=== PATIENT | female | born 1990 | race Caucasian/White ===

== ENCOUNTER 2017-09-02 13:00 | Inpatient (IN) | payer BC ==
[~2017-09-02] VITALS: Ht 149.9 cm; Wt 77.6 kg
[~2017-09-02 13:00] MED LIST: ACET-685 PO; CEFD300C2 PO; FERR325T15 PO; HYDR-926 PO; PHEN-566 PO; PREN1TAB59 PO; SERT50TA PO
[2017-09-02] MEDS ORDERED: LACT1CAP34 PO (13:32)
[2017-09-02 13:40] VITALS: BP 122/72
[2017-09-02 14:05] LABS: BASOPHIL % 0.2 % (0.0-0.2); EOSINOPHIL % 0.4 % (0.0-5.0); LYMPHOCYTES # 2.1 10^3/uL (1.0-4.8); MEAN CELL HGB 29.5 pg (26-34); MEAN CELL HGB CONCENTRATION 33.9 g/dL (33-37); MEAN PLATELET VOLUME 12.5 fL (7.8-11.0); MONOCYTES # 0.6 10^3/uL (0.3-0.8); MONOCYTES % 6.7 % (5.0-12.0); NEUTROPHIL # 5.7 10^3/uL (1.8-7.7); NEUTROPHILS % 67.5 % (41.0-85.0); WHITE BLOOD CELL 8.4 10^3/uL (4.5-11.0)
[2017-09-02 14:07] LABS: BILIRUBIN,URINE NEGATIVE (NEGATIVE); UROBILINOGEN,URINE NORMAL (NEGATIVE)
[2017-09-02 14:23] LABS: APPEARANCE,URINE HAZY (CLEAR); UA COLOR YELLOW (YELLOW)
[2017-09-02 14:24] LABS: YEAST,URINE FEW
[2017-09-05] VITALS (54 sets, daily range): BP systolic 42–157; BP diastolic 21–97
[2017-09-05] MEDS ORDERED: LACTATED RINGERS 1,000 ML ONE ×3 (04:58→15:13)
[2017-09-05] MEDS: LACTATED RINGERS 1,000 ML IV PRN ×2 (07:39→09:55)
[2017-09-05] MEDS ORDERED: SODIUM CHLORIDE IR ONE (07:42)
[2017-09-05] MEDS ORDERED: LEVAQUIN 100 ML IV ONE (08:00)
[2017-09-05] MEDS ORDERED: ROCEPHIN 1,000 MG in NS 100ML 100 ML IV SCH (08:00)
[2017-09-05] MEDS ORDERED: DURAMORPH ONE (10:12)
[2017-09-05] MEDS ORDERED: DECADRON ONE (10:12)
[2017-09-05] MEDS ORDERED: ZOFRAN ONE (10:12)
[2017-09-05] MEDS ORDERED: SUBLIMAZE ONE ×2 (10:12→14:25)
[2017-09-05] MEDS ORDERED: TORADOL ONE ×2 (10:13→17:16)
[2017-09-05] MEDS: LACTATED RINGERS IV SCH ×3 (12:26→20:28)
[2017-09-05] MEDS: PITOCIN IV SCH ×3 (12:26→20:28)
[2017-09-05] MEDS ORDERED: AMBIEN PO PRN (12:30)
[2017-09-05] MEDS ORDERED: DILAUDID IV PRN (12:30)
[2017-09-05] MEDS ORDERED: BENADRYL PO PRN (12:30)
[2017-09-05] MEDS ORDERED: ZOFRAN ODT SL PRN (12:30)
[2017-09-05] MEDS ORDERED: MILK OF MAGNESIA PO PRN (12:30)
[2017-09-05] MEDS ORDERED: GAVISCON ES TABLET CHEW PO PRN (12:30)
--- NOTE | 2017-09-05 12:41 | PRM.OPH ---
Immediate Post Op Note Summary of Operation Date: Sep 05, 2017 Time: 12:33 Pre-Operative DX: IUP @ 39 2/7 WEEKS; H/O C/S X 3; UNDESIRED FERTILITY/DESIRES PERMANENT STER Post-OP DX: SAME Anesth.Used: FAILED SPINAL; GETA; LOCAL INFILTRATED TO WOUND AT CONCLUSION OF CASE (PRIOR TO PLACEMENT OF PREVENA WOUND VAC) Indications: REPEAT LOW TRANSVERSE SECTION VIA PFANNENSTIEL; BILATERAL SALPINGECTOMY EMPLOYING LIGASURE DEVICE Physician's Summary: Healthy-appearing liveborn male infant, delivered in breech position after internal version ( head moved to maternal right, and baby became transverse back-up lie upon entry into uterus and rupture of membranes), nuchal cord X 1, clear-colored fluid/membranes throughout. Baby boy born at 11:26am, scores of 7 and 9, weight 3968g (8# 11oz). Normal-appearing placenta. Normal-appearing tubes bilaterally, ovaries bilaterally. Assistants: Listed Assisting Physicians FLEX CENTENO DO; DORINA ORTIZ CASE FINISHER; NESS SCALES CST Anesthesiologist/BEHAVIORAL HEALTH DIRECTOR FRANK MICHAEL CRNA Specimen(s) Removed: List Specimen: RIGHT AND LEFT FALLOPIAN TUBES Estimated Blood Loss: EBL/ESTIMATED BLOOD LOSS: (MIL: 500 Complications: Complications: NONE Assessment & Plan: Update Surgical HX/Problems: (1) Status post repeat low transverse section (2) Status post bilateral salpingectomy (3) 39 weeks gestation of (4) History of 3 sections Assessment & Plan: Routine postop care. BRI JAMES MD Sep 05, 2017 12:41
[2017-09-05] MEDS ORDERED: PHENERGAN ONE (13:17)
[2017-09-05] MEDS ORDERED: DEMEROL ONE (13:17)
[2017-09-05] MEDS: DEMEROL IV PRN ×2 (13:29→19:46)
[2017-09-05] MEDS: PHENERGAN IV PRN (13:30)
--- NOTE | 2017-09-05 13:40 | NUR ---
PAIN REASSESSMENT FROM DEMEROL 0/10
[2017-09-05] MEDS ORDERED: CYTOTEC ONE (14:12)
[2017-09-05] MEDS ORDERED: NARCAN ONE (14:14)
[2017-09-05] MEDS ORDERED: DIPRIVAN IV ONE (14:21)
[2017-09-05] MEDS ORDERED: VERSED ONE (14:25)
[2017-09-05] MEDS ORDERED: WATER ONE (14:29)
[2017-09-05] MEDS ORDERED: NS 1000ML 1,000 ML ONE ×2 (14:29→15:02)
[2017-09-05] MEDS ORDERED: PREMARIN VG ONE (14:32)
[2017-09-05] MEDS ORDERED: HEMABATE IM ONE (14:42)
[2017-09-05 15:08] LABS: BASOPHIL % 0.1 % (0.0-0.2); EOSINOPHIL % 0.1 % (0.0-5.0); HEMOGLOBIN 12.9 g/dL (12.0-15.0); LYMPHOCYTES # 1.3 10^3/uL (1.0-4.8); LYMPHOCYTES % 7.7 % (24.0-44.0); MEAN CELL HGB 29.7 pg (26-34); MEAN CELL HGB CONCENTRATION 33.6 g/dL (33-37); MEAN CORP VOLUME 88.5 fL (78-100); MEAN PLATELET VOLUME 12.6 fL (7.8-11.0); MONOCYTES # 0.5 10^3/uL (0.3-0.8); NEUTROPHILS % 88.9 % (41.0-85.0); RED CELL DISTRIBUTION WIDTH 15.3 % (11.5-14.5); WHITE BLOOD CELL 16.9 10^3/uL (4.5-11.0)
[2017-09-05] MEDS ORDERED: LANOLIN HYDROUS TP ONE (15:54)
[2017-09-05 16:14] LABS: BASOPHIL % 0.1 % (0.0-0.2); EOSINOPHIL % 0.1 % (0.0-5.0); HEMOGLOBIN 14.1 g/dL (12.0-15.0); LYMPHOCYTES # 0.8 10^3/uL (1.0-4.8); LYMPHOCYTES % 5.2 % (24.0-44.0); MEAN CORP VOLUME 87.9 fL (78-100); MEAN PLATELET VOLUME 13.2 fL (7.8-11.0); MONOCYTES # 0.6 10^3/uL (0.3-0.8); MONOCYTES % 3.9 % (5.0-12.0); NEUTROPHIL # 13.5 10^3/uL (1.8-7.7); NEUTROPHILS % 90.5 % (41.0-85.0); RED CELL DISTRIBUTION WIDTH 15.2 % (11.5-14.5); WHITE BLOOD CELL 14.9 10^3/uL (4.5-11.0)
--- NOTE | 2017-09-05 16:59 | PRM.PN ---
Progress Note Subjective Date: Sep 05, 2017 Time: 16:43 PRE-OP DX: (1) atony of uterus with hemorrhage Anesth. Used: IV SEDATION WITH VERSED Procedure Performed: EXAM UNDER ANESTHESIA, PLACEMENT OF VAGINAL PACKING/BAKRI BALLOON Indications Called by Lisa Stewart RN to come to hospital because Judi Guidry RN was checking Chyana in her LDR and a hemorrhage was encountered, with approx 1500cc's of blood produced in the bed. 800mcg's Cytotec FL given by Judi, and patient moved to C/S OR. I arrived around 1420 and Barbara Velasquez CRNA was in the OR by that time as well. Pt moved to OR table, and while she was being moved, another 1500cc's of blood poured out from uterus. Pt given IV Versed and oxygen administered via face mask. Two IV sites secured. I performed an aggressive bimanual exam. Cervix not dilated except for fingertip. Decision made to place Bakri Baloon in posterior fornix of vagina, and pack vagina with entire moistened Kerlex roll. Sand bag and 1L IVF bag placed on uterine fundus; abdominal binder (now bloody) had been secured after I placed the Bakri. Three units O NEG blood given in C/S OR. Pt given 400mcg's more of Cytotec, so total dose would be 1200mcg's of Cytotec. Pt also given two doses of Methergine 0.2mg's IM and one dose of Hemabate 250mcg's IM. Pt received two bags of IVFs with 30units of Pitocin each. Decision made to move to the ICU for better observation. Peripheral blood could not be obtained , even in the feet. Stat CBC not accurate. I will want this patient to receive a total of 6units PRBCs and 2units FFP, but will defer to Dr Gardiner in the ICU. Urine output excellent just prior to moving patient to ICU bed and transfer to ICU. Family told of what was happening and that most likely Tyshawn will return to L&D tomorrow morning. FINAL DIAGNOSIS: SEVERE UTERINE ATONY, LEADING TO HEMORRHAGE. Loss of polarity of uterus and malpresentation when baby was delivered, was clue to this subsequent complication. Appreciate Dr Daniels and Dr Gardiner in participating in the care of this patient. EBL/ESTIMATED BLOOD LOSS: (MIL: 3000 Objective Urine Output: Adequate VITALS Vital Signs 09/05/17 09/05/17 09/05/17 12:32 12:47 16:33 Temp 99.0 Pulse 61 Resp 22 B/P (MAP) 128/74 Pulse Ox 95 O2 Delivery Room Air Non-Rebreather O2 Flow Rate 5 Vital Signs 09/05/17 09/05/17 09/05/17 09/05/17 12:17 12:17 12:32 12:47 Temp 97.7 97.9 97.7 Pulse 75 68 Resp 20 18 18 B/P (MAP) 128/80 (96) 115/73 (87) 121/72 (88) Pulse Ox 99 97 95 O2 Delivery Non-Rebreather Non-Rebreather Room Air Non-Rebreather O2 Flow Rate 15 15 5 09/05/17 16:33 Temp 99.0 Pulse 61 Resp 22 B/P (MAP) 128/74 I & O 09/04/17 09/04/17 09/05/17 08:00 16:00 00:00 Intake Detail Assessment & Plan: POST-OP DX: (1) atony of uterus with hemorrhage ICD Code: O72.1 - Other immediate hemorrhage SNOMED: 8407254, [id number] Assessment/Plan Will continue with transfusion, so that patient gets a total of 6units of PRBCs and 2units of FFP. Likely transfer back to L&D tomorrow am. BRI JAMES MD Sep 05, 2017 16:59
--- NOTE | 2017-09-05 17:00 | NUR ---
Patient had 200 ml of clear yellow urine out, hourly urine output per Dr. Daniels's order.
--- NOTE | 2017-09-05 17:00 | NUR ---
Dr. Daniels at bedside. Assess the patient and discuss plan of care with patient and with the mother of the patient. Patient complain of back pain. Patient verbalized that the only surgical history she had was 3 previous C section and other than that she is pretty healthy. Reinforce the importance of using the incentive spirometer after surgery. Patient ask if she can sit up to help with the back pain, Dr. Daniels contacted Dr. Deal and with Dr. Deal approval allowed patient to sit up in bed and patient's head of the bed at 32 degrees. Patient can have Gatorade, Jello, popsicle, chicken broth (clear liquid).
[2017-09-05] MEDS: TORADOL IV SCH (17:19)
--- NOTE | 2017-09-05 17:32 | NUR ---
DELEE SUCTIONED 6CC BLODDY SECRETIONS, CONTINUED TO DRY AND STIMULATE, APGARS 7&9, PLACED IN WARM BLANKETS AND TAKEN TO NURSERY
[2017-09-05] MEDS: PROTONIX IV IV SCH (17:53)
--- NOTE | 2017-09-05 18:00 | NUR ---
Patient had 220 ml of clear yellow urine out, hourly urine output per Dr. Daniels's order.
--- NOTE | 2017-09-05 18:45 | NUR ---
REPORT RECEIVED FROM JONATHAN CAMPOVERDE RN. ASSUMED PT CARE.
[2017-09-05] MEDS ORDERED: NS 250ML 250 ML IV ONE (20:09)
--- NOTE | 2017-09-05 21:21 | CNH ---
DATE OF CONSULTATION: CHIEF COMPLAINT: Post bleeding. HISTORY OF PRESENT ILLNESS: This is a 26-year-old female who presented today for . She had an urgent performed because of general anesthesia being required for no spinal being obtained. She had an essentially routine that was uneventful; however, in the postoperative phase, she developed some significant bleeding. She was treated clinically by the OB service and transfused PRBCs and at this time fresh frozen plasma was ordered. The patient has been moved to the ICU for monitoring and surgical evaluation for acute blood loss is requested. At time of my assessment, the patient is alert and pleasant. She has been supine since surgery. At her request, she is allowed to raise the head of her bed and she is noted to have no acute change in her vital signs. Heart rate was not increased when rising from supine to the seated position and her blood pressure did not have significant change. She does report some lower abdominal pain. She denies any nausea. She tolerated some clears per the nursing service reports. She has got good urine output in the ICU. PAST MEDICAL HISTORY: She denies. PAST SURGICAL HISTORY: Positive for x 3 prior to today and the 4th today. ALLERGIES: INCLUDE SULFA, PENICILLIN, NITROFURANTOIN. OUTPATIENT MEDICATIONS: Essentially none although apparently she was on some vitamins. SOCIAL HISTORY: Negative for alcohol, tobacco per chart. FAMILY HISTORY: Noncontributory to this evaluation. REVIEW OF SYSTEMS: CONSTITUTIONAL: She does not have any fever or chills at this time. She did have apparently some weakness earlier that is improved now. ENDOCRINE: She has no known thyroid disease or diabetes. CARDIOVASCULAR: She denies chest pain or trouble breathing. PULMONARY: She denies dyspnea or cough. OBSTETRIC AND GYNECOLOGIC: As per the chart. PHYSICAL EXAMINATION: VITAL SIGNS: This is a currently afebrile female. Last temperature is 99.2. Most recent pulse is 62, respiratory rate is approximately 22. Most recently reported blood pressure is 122/73. She has had good urine output approximately 700 mL today at 4:30 and we are requesting hourly urine outputs at this time. LABORATORY STUDIES: Last hemoglobin is 14.1 with a platelet count of 91. White count is 14.9. SURGICAL ASSESSMENT: 1. Status post today. 2. Postoperative acute blood loss, likely secondary to uterine atony. 3. Thrombocytopenia. PLAN: 1. The patient is seen and examined. Chart is reviewed. It appears that the patient has been appropriately managed from a clinical standpoint at this point by the OB service as the patient is down in the ICU. I will follow closely. 2. I have requested evaluation and continued management by the hospitalist service and the case was discussed with Dr. Gardiner. He will likely see her today. 3. She currently has adequate peripheral access. However, if she develops any further problems, we will consider central venous catheter placement. 4. Agree with the plan to transfuse FFP after completion of PRBCs and she will require close monitoring, hence the ICU admission seems appropriate. She has a DVT prophylaxis in the form of sequential compression devices and I have ordered Protonix for GI prophylaxis due to low platelets. Constantin Daniels DO DR: MARYCRUZ/pamela JOB# [id number] CC: Prince Deal MD MTDD
--- NOTE | 2017-09-05 23:03 | NUR ---
DR CENTENO CALLED TO ADVISE ON PT STATUS. NEW ORDERS RECEIVED: 1 - CBC, PT, PTT TO BE CHECKED 2 HOURS AFTER LAST FFP IS TRANSFUSED. 2 - RUN LR AT 100ML/HR. ALL ORDERS RBAV.
[2017-09-05] MEDS ORDERED: LACTATED RINGERS 1,000 ML IV ONE (23:30)
[2017-09-06] VITALS (66 sets, daily range): BP systolic 101–141; BP diastolic 44–86
[2017-09-06] MEDS: TORADOL IV SCH ×2 (00:01→06:17)
--- NOTE | 2017-09-06 00:27 | NUR ---
PAIN: PT COMPLAINING OF BACK PAIN AND PAIN TO RIGHT CHEST AREA. DR CENTENO NOTIFIED. ORDER GIVEN FOR EKG. ORDER RBAV.
[2017-09-06] MEDS: LACTATED RINGERS IV SCH (00:29)
[2017-09-06] MEDS: PITOCIN IV SCH (00:29)
--- NOTE | 2017-09-06 00:36 | PCM.EKG ---
[facility] Test Date: 2017-09-06 Test Time: 00:39:46 Pat Name: CHELSEA PHILLIPS Department: Room: ICU4 A Gender: F Delivery And Mail Sorter: LATRICIA : 1990 Requested By: FLEX CENTENO Order Number: [id number] Reading MD: John Pena Measurements Intervals [place] Rate: 65 P: -1 SC: 144 QRS: 7 QRSD: 86 T: 23 QT: 408 QTc: 424 Interpretive Statements Normal sinus rhythm Normal ECG No previous ECG available for comparison Electronically Signed On 09-07-2017 15:15:41 CDT by John Pena Please click the below link to view image of tracing.
--- NOTE | 2017-09-06 00:38 | NUR ---
EKG: RT - DANNY AT BEDSIDE FOR EKG.
--- NOTE | 2017-09-06 00:40 | NUR ---
DR CENTENO ON UNIT TO ASSESS PT.
--- NOTE | 2017-09-06 00:45 | NUR ---
BIOMETRIC FINGERPRINTING TECHNICIAN AT BEDSIDE
[2017-09-06] MEDS: NORCO 7.5MG PO PRN ×4 (00:51→16:26)
[2017-09-06 01:10] LABS: BASOPHIL % 0.1 % (0.0-0.2); LYMPHOCYTES # 1.3 10^3/uL (1.0-4.8); LYMPHOCYTES % 10.8 % (24.0-44.0); MEAN CELL HGB 29.7 pg (26-34); MEAN CELL HGB CONCENTRATION 34.7 g/dL (33-37); MEAN CORP VOLUME 85.6 fL (78-100); MEAN PLATELET VOLUME 12.7 fL (7.8-11.0); MONOCYTES # 1.2 10^3/uL (0.3-0.8); MONOCYTES % 9.3 % (5.0-12.0); NEUTROPHIL # 9.8 10^3/uL (1.8-7.7); NEUTROPHILS % 79.8 % (41.0-85.0); PLATELET COUNT 88 10^3/uL (150-400); RED CELL DISTRIBUTION WIDTH 15.1 % (11.5-14.5); WHITE BLOOD CELL 12.3 10^3/uL (4.5-11.0)
--- NOTE | 2017-09-06 01:15 | NUR ---
DR CENTENO NOTIFIED OF PT CBC LAB RESULTS. TELEPHONE ORDER GIVEN: 1-HOLD OFF ON BLOOD 2-CALL MD FOR HEART RATE GREATER THAN 80 3-CALL MD FOR SYSTOLIC BP LESS THAN 110 4-CONTINUE RUNNING LR AT 100ML/HR ORDERS RBAV.
--- NOTE | 2017-09-06 05:21 | NUR ---
DR CENTENO NOTIFIED OF PT BP OF 104/70 AND LAST 3 HOURLY OUTPUT OF 30ML/HR. TELEPHONE ORDER TO BOLUS PT 500ML OF NS. ORDER RBAV.
[2017-09-06] MEDS ORDERED: NS 1000ML 1,000 ML ONE (05:22)
--- NOTE | 2017-09-06 05:24 | NUR ---
CREATIVE WRITING ENGLISH PROFESSOR AT BEDSIDE.
[2017-09-06] MEDS ORDERED: NS 500ML 500 ML IV ONE (05:30)
[2017-09-06 06:50] LABS: CALCIUM 8.3 mg/dL (8.4-10.5); CARBON DIOXIDE 26.1 mmol/L (20.0-32)
[2017-09-06 06:52] LABS: BASOPHIL % 0.1 % (0.0-0.2); HEMOGLOBIN 11.4 g/dL (12.0-15.0); LYMPHOCYTES # 1.6 10^3/uL (1.0-4.8); LYMPHOCYTES % 15.4 % (24.0-44.0); MEAN CELL HGB 29.4 pg (26-34); MEAN CELL HGB CONCENTRATION 33.4 g/dL (33-37); MEAN CORP VOLUME 87.9 fL (78-100); MEAN PLATELET VOLUME 12.8 fL (7.8-11.0); MONOCYTES # 1.1 10^3/uL (0.3-0.8); MONOCYTES % 11.1 % (5.0-12.0); NEUTROPHIL # 7.4 10^3/uL (1.8-7.7); NEUTROPHILS % 73.2 % (41.0-85.0); RED CELL DISTRIBUTION WIDTH 15.4 % (11.5-14.5); WHITE BLOOD CELL 10.1 10^3/uL (4.5-11.0)
--- NOTE | 2017-09-06 07:00 | NUR ---
REPORT TO AM SHIFT. PT CARE RELINQUISHED.
--- NOTE | 2017-09-06 07:00 | NUR ---
RECEIVED REPORT ASSUMED CARE, RESTING QUIETLY, 0 DISTRESS NOTED, CALL LIGHT IN REACH.
--- NOTE | 2017-09-06 07:15 | NUR ---
PT ON BEDREST POST WITH HEMORRHAGE.
--- NOTE | 2017-09-06 07:30 | NUR ---
ABDOMINAL ASSESSMENT ABDOMINAL BINDER IN PLACE PREVENA WOUND VAC, DRESSING INTACT, CLEAN AND DRY, FUNCTIONING. BAKRI INTRAUTERINE BALLOON DEVICE IN PLACE. SMALL AMOUNT OF BLOODY DRAINAGE NOTED IN CATHETER TUBING. Addendum: 09/06/17 at 1636 by Betty Yanes RN - LAST CLEANER BOWEL SOUNDS HYPOACTIVE X4
--- NOTE | 2017-09-06 07:35 | NUR ---
DR CENTENO CALLED UNIT FOR UPDATE ON PT STATES TO CONTINUE CLEAR LIQUIDS, HE WILL BE ON UNIT THIS AM TO SEE PT.
--- NOTE | 2017-09-06 07:45 | NUR ---
PT SITTING UP WITH BREAKFAST TRAY CLEAR LIQUIDS, TOLERATED WELL.
--- NOTE | 2017-09-06 08:00 | NUR ---
DR LEON AT BEDSIDE TO ASSESS PT AND DISCUSS TX PLAN, STATES SHE WILL BE TRANSFERRED TO OB UNIT LATER TODAY.
[2017-09-06] MEDS ORDERED: PRENATAL VITAMIN TABLET PO ONE (09:34)
--- NOTE | 2017-09-06 09:54 | NUR ---
DR CENTENO AT BEDSIDE TO ASSESS PT AND DISCUSS TREATMENT PLAN, NEW ORDERS, DECREASE AND CONTINUE LR TO 50 ML/HR, CONTINUE CLEAR LIQUIDS, WILL GO TO OB UNIT TODAY PENDING LAB RESULTS.
[2017-09-06] MEDS ORDERED: MAGNESIUM SULFATE 50 ML IV ONE ×2 (10:00→13:12)
[2017-09-06] MEDS ORDERED: KLOR-CON 10 PO SCH (10:00)
[2017-09-06] MEDS ORDERED: ROCEPHIN 1,000 MG in NS 100ML 100 ML IV SCH (10:00)
[2017-09-06] MEDS: PRENATAL VITAMIN TABLET PO SCH (10:23)
[2017-09-06] MEDS: PROTONIX IV IV SCH (10:23)
[2017-09-06 11:03] LABS: BASOPHIL % 0.2 % (0.0-0.2); EOSINOPHIL % 0.1 % (0.0-5.0); HEMOGLOBIN 11.2 g/dL (12.0-15.0); LYMPHOCYTES # 1.7 10^3/uL (1.0-4.8); LYMPHOCYTES % 19.8 % (24.0-44.0); MEAN CELL HGB 29.2 pg (26-34); MEAN CELL HGB CONCENTRATION 33.2 g/dL (33-37); MEAN CORP VOLUME 87.8 fL (78-100); MEAN PLATELET VOLUME 13.1 fL (7.8-11.0); MONOCYTES # 0.7 10^3/uL (0.3-0.8); MONOCYTES % 8.4 % (5.0-12.0); NEUTROPHIL # 6.1 10^3/uL (1.8-7.7); NEUTROPHILS % 71.4 % (41.0-85.0); RED CELL DISTRIBUTION WIDTH 15.4 % (11.5-14.5); WHITE BLOOD CELL 8.5 10^3/uL (4.5-11.0)
--- NOTE | 2017-09-06 11:08 | PNH ---
DATE: SUBJECTIVE: A 26-year-old female in no acute distress in the ICU this morning. She was tolerating clear liquid diet. Her pain is improved. OBJECTIVE: VITAL SIGNS: She has T-max during the night of 99.5. Most recent temperature today is 98.0, most recent pulse is 64, respiratory rate of 15, blood pressure 105/49. She has had good urine output. O2 sat is 98%. HEART: Has regular rate and rhythm. LUNGS: Clear anteriorly bilaterally. ABDOMEN: The bowel sounds are positive, soft. Her uterus is still palpable and binder was replaced as placed by OB. The incision was covered with a Prevena device. LABORATORY DATA: Today show white count 10.1, hemoglobin 11.4, platelet count 79. Chemistry today shows potassium 3.5, BUN is 6, creatinine 0.63, magnesium is low at 1.4 and albumin is 2.1. Labs during the night, PT was 9.5, PTT is 24.8. SURGICAL ASSESSMENT: 1. Postoperative day #1 from section. 2. Postoperative hemorrhage requiring transfusion. 3. Thrombocytopenia. 4. Hypomagnesemia. PLAN: 1. The patient is seen and examined in the ICU. The chart is reviewed. I have reviewed medications ordered. There is no further medication that should be dropping her platelet count. 2. Continue GI and DVT prophylaxis as ordered. 3. We will repeat a CBC and PT, PTT later today and if they are stabilized, we will plan for allowing the patient to go back to the OB Department. 4. Obstetric management per the GEAR CODING MACHINE OPERATOR service. Constantin Daniels DO DR: MARYCRUZ/pamela JOB# [id number] CC: Prince ORTEZ
--- NOTE | 2017-09-06 11:10 | NUR ---
ABDOMINAL ASSESSMENT BOWEL SOUNDS X4, HYPOACTIVE. ABDOMINAL BINDER IN PLACE PREVENA WOUND VAC, DRESSING INTACT, CLEAN AND DRY, FUNCTIONING. BAKRI INTRAUTERINE BALLOON DEVICE IN PLACE. SMALL AMOUNT OF SEROSANGUINEOUS DRAINAGE NOTED IN CATHETER TUBING.
--- NOTE | 2017-09-06 11:31 | NUR ---
PT C/O PAIN IN BACK ADMINISTERED PO PRN MED FOR PAIN, SEE MAR.
--- NOTE | 2017-09-06 12:00 | NUR ---
PT ASSISTED WITH SPONGE BATH BY MOTHER, PER HER REQUEST.
--- NOTE | 2017-09-06 12:45 | NUR ---
DR JAMES AT BEDSIDE TO ASSESS PT. DISCUSSED AT LENGTH THE TREATMENT PLAN AND POSSIBLE COMPLICATIONS. STATED TO PT AND FAMILY THAT THE REDNESS ON R UPPER ARM WAS CAUSED BY PROSTAGLANDIN INJECTION GIVEN IN O.R. YESTERDAY WHEN PT HEMORRHAGED POST . STATES REDNESS PROBABLY CAUSED BY CHEMICALS OR PRESERVATIVES IN MEDICATION. REDNESS HAS NOT MOVED BEYOND BOUNDARY MARKINGS MADE WITH SKIN MARKER THIS AM. NEW ORDERS TRANSFER PT TO OB UNIT TODAY. DR JAMES STATES HE WILL SPEAK WITH DR CENTENO ABOUT LAB RESULTS AND TRANSFER.
--- NOTE | 2017-09-06 12:57 | PRM.PN ---
Subjective/Objective S/P: C/S (POD #1 s/p Repeat C/S with bilateral salpingectomy and Bakri Balloon placement, currently stable in the ICU--going to be transferred back to right now) General: Other (Pt is having some back pain ) Chest: Clear Heart: RRR Abdomen: Other (Abdominal binder is on, plus sandbag and 1000liter IVF bag) incision: Other (Prevena wound vac still in place) Urine Output: Adequate Extremities: Neg Edema/Neg Homans Vital Signs Vital Signs 09/05/17 09/05/17 09/05/17 12:32 12:47 16:33 Temp 99.0 Pulse 61 Resp 22 B/P (MAP) 128/74 Pulse Ox 95 O2 Delivery Room Air Non-Rebreather O2 Flow Rate 5 Vital Signs 09/05/17 09/05/17 09/05/17 09/05/17 12:17 12:17 12:32 12:47 Temp 97.7 97.9 97.7 Pulse 75 68 Resp 20 18 18 B/P (MAP) 128/80 (96) 115/73 (87) 121/72 (88) Pulse Ox 99 97 95 O2 Delivery Non-Rebreather Non-Rebreather Room Air Non-Rebreather O2 Flow Rate 15 15 5 09/05/17 16:33 Temp 99.0 Pulse 61 Resp 22 B/P (MAP) 128/74 I & O 09/04/17 09/04/17 09/05/17 08:00 16:00 00:00 Intake Detail Pulse is in the 60s Laboratory Tests Test 09/05/17 15:04 09/05/17 15:51 09/06/17 00:35 09/06/17 02:32 White Blood Count 16.9 10^3/uL 14.9 10^3/uL 12.3 10^3/uL Red Blood Count 4.34 10^6/uL 4.86 10^6/uL 4.04 10^6/uL Hemoglobin 12.9 g/dL 14.1 g/dL 12.0 g/dL Hematocrit 38.4 % 42.7 % 34.6 % Mean Corpuscular Volume 88.5 fL 87.9 fL 85.6 fL Mean Corpuscular Hemoglobin 29.7 pg 29.0 pg 29.7 pg Mean Corpuscular Hemoglobin Concent 33.6 g/dL 33.0 g/dL 34.7 g/dL Red Cell Distribution Width 15.3 % 15.2 % 15.1 % Platelet Count 110 10^3/uL 91 10^3/uL 88 10^3/uL Mean Platelet Volume 12.6 fL 13.2 fL 12.7 fL Neutrophils (%) (Auto) 88.9 % 90.5 % 79.8 % Lymphocytes (%) (Auto) 7.7 % 5.2 % 10.8 % Monocytes (%) (Auto) 3.0 % 3.9 % 9.3 % Neutrophils # (Auto) 15.0 10^3/uL 13.5 10^3/uL 9.8 10^3/uL Lymphocytes # (Auto) 1.3 10^3/uL 0.8 10^3/uL 1.3 10^3/uL Monocytes # (Auto) 0.5 10^3/uL 0.6 10^3/uL 1.2 10^3/uL Absolute Immature Granulocyte (auto 0.03 10^3 u/L 0.03 10^3 u/L Eosinophils % 0.1 % 0.1 % 0.0 % Basophils % 0.1 % 0.1 % 0.1 % Basophils # 0.0 10^3/uL 0.0 10^3/uL 0.0 10^3/uL Eosinophil Count 0.0 10^3/uL 0.0 10^3/uL 0.0 10^3/uL Percent Immature Gran (Cell Imm) 0.20 % 0.20 % Activated Partial Thromboplast Time 24.8 SEC Prothrombin Time 9.5 SEC Prothrombin Time INR (Non-Therap) 1.0 Test 09/06/17 05:21 09/06/17 08:04 09/06/17 10:45 09/06/17 11:00 White Blood Count 10.1 10^3/uL 8.5 10^3/uL Red Blood Count 3.88 10^6/uL 3.84 10^6/uL Hemoglobin 11.4 g/dL 11.2 g/dL Hematocrit 34.1 % 33.7 % Mean Corpuscular Volume 87.9 fL 87.8 fL Mean Corpuscular Hemoglobin 29.4 pg 29.2 pg Mean Corpuscular Hemoglobin Concent 33.4 g/dL 33.2 g/dL Red Cell Distribution Width 15.4 % 15.4 % Platelet Count 79 10^3/uL 81 10^3/uL Mean Platelet Volume 12.8 fL 13.1 fL Neutrophils (%) (Auto) 73.2 % 71.4 % Lymphocytes (%) (Auto) 15.4 % 19.8 % Monocytes (%) (Auto) 11.1 % 8.4 % Neutrophils # (Auto) 7.4 10^3/uL 6.1 10^3/uL Lymphocytes # (Auto) 1.6 10^3/uL 1.7 10^3/uL Monocytes # (Auto) 1.1 10^3/uL 0.7 10^3/uL Absolute Immature Granulocyte (auto 0.02 10^3 u/L 0.01 10^3 u/L Eosinophils % 0.0 % 0.1 % Basophils % 0.1 % 0.2 % Basophils # 0.0 10^3/uL 0.0 10^3/uL Eosinophil Count 0.0 10^3/uL 0.0 10^3/uL Sodium Level 141 mmol/L Potassium Level 3.5 mmol/L Chloride Level 106.0 mmol/L Carbon Dioxide Level 26.1 mmol/L Anion Gap 12.4 Blood Urea Nitrogen 6 mg/dL Creatinine 0.63 mg/dL Estimated GFR () 138.2 BUN/Creatinine Ratio 9.0 Glucose Level 95 mg/dL Calcium Level 8.3 mg/dL Total Bilirubin 0.9 mg/dL Aspartate Amino Transf (AST/SGOT) 17 U/L Alanine Aminotransferase (ALT/SGPT) 13 U/L Alkaline Phosphatase 92 U/L Total Protein 5.2 g/dL Albumin 2.1 g/dL Globulin 3.1 Percent Immature Gran (Cell Imm) 0.20 % 0.10 % Magnesium Level 1.4 mg/dL Prothrombin Time 9.5 SEC Prothrombin Time INR (Non-Therap) 1.0 Activated Partial Thromboplast Time 25.4 SEC Assessment/Plan Assessment/Plan S/P Hemorrhage requiring aggressive prostaglandin administration plus Bakri Balloon placement and vaginal packing--currently clinically stable. Will transfer back to unit now. Will not pull Bakri/vaginal packing till this evening. Pt has now received 4units PRBCs and 2units FFP; will hold off on any more transfusion products for now. Platelets are stable at 89. Urine output excellent. Will pull Carlton when Bakri is pulled tonite. Will want patient to get up to chair and even ambulate today. Advance diet. Will draw labs tomorrow am. IV Toradol held. APPRECIATE DR CENTENO'S ASSISTANCE IN THE MANAGEMENT OF THIS PATIENT. I have spoken with the family (pt's mother, pt' s ) here in the ICU (Room #4) and all of their questions were answered. They appreciate the nursing staff and team mobilizing quickly yesterday in the early afternoon to get Chyana's bleeding under control. Anticipate discharge home Thursday or even Thursday. Problems: (1) atony of uterus with hemorrhage ICD Code: O72.1 - Other immediate hemorrhage SNOMED: 7018728, 25730723 (2) Status post repeat low transverse section ICD Code: Z98.891 - History of uterine scar from previous surgery SNOMED: 81031890, 406734529, 065696853, 212845117 (3) Status post bilateral salpingectomy ICD Code: Z90.79 - Acquired absence of other genital organ(s) SNOMED: 89663040, 060784409 (4) History of 3 sections Status: Acute ICD Code: Z87.59 - Personal history of other complications of , childbirth and the puerperium SNOMED: 957641585 (5) 39 weeks gestation of ICD Code: Z3A.39 - 39 weeks gestation of SNOMED: 87730670 BRI JAMES MD Sep 06, 2017 12:57
[2017-09-06] MEDS ORDERED: MAGNESIUM-D5W 1 GM/100 ML SOLN 100 ML IV ONE (12:59)
[2017-09-06] MEDS ORDERED: LACTATED RINGERS 1,000 ML ONE (12:59)
--- NOTE | 2017-09-06 13:00 | NUR ---
TELEPHONE ORDER DR CENTENO CONTINUE LR AT 50 ML/HR. VBAV.
[2017-09-06] MEDS ORDERED: HETASTARCH 6% IV PRN (14:30)
[2017-09-06] MEDS ORDERED: CYTOTEC PV PRN (14:30)
[2017-09-06] MEDS ORDERED: METHERGINE IM PRN (14:30)
[2017-09-06] MEDS ORDERED: SODIUM CHLORIDE IV PRN (14:30)
[2017-09-06] MEDS: MOTRIN PO PRN (14:34)
--- NOTE | 2017-09-06 14:34 | NUR ---
PT C/O HEADACHE P9/10, ADMINISTERED PRN PO MED FOR PAIN, SEE MAR.
[2017-09-06] MEDS ORDERED: LR/PITOCIN 500 ML IV PRN (15:00)
--- NOTE | 2017-09-06 16:27 | NUR ---
PT STATES HEADACHE PAIN IS NOT RELIEVED, RATES 8/, ADMINISTERED PO PRN MEDICATION FOR PAIN, SEE MAR.
--- NOTE | 2017-09-06 17:30 | NUR ---
PT TRANSFERRED TO L&D1 VIA ICU BED, ON ROOM AIR, VSS, 0 DIFFICULTIES, 0 DISTRESS. REPORTED TO [facility] L&[facility].
[2017-09-06] MEDS: TYLENOL PO PRN (20:05)
--- NOTE | 2017-09-06 20:28 | CNH ---
DATE OF CONSULTATION: 09/05/2017 CONSULT/HISTORY AND PHYSICAL REFERRING PHYSICIAN: Constantin Daniels DO and Pancho Deal MD with General Surgery and OB respectively. REASON FOR CONSULTATION: Medical management of multiple medical problems. HISTORY OF PRESENT ILLNESS: The patient is a 26-year-old woman who is status post with a significant amount of blood loss. She also has some thrombocytopenia. She did not have any routine past medical history. Denies any tobacco use, has no chest pain, has a good functional status. There was reported significant amount of blood loss in the operating room with a . She was written for 2 units of FFP and 7 units of blood were ordered, although initially just 2 were transfused. Initial hemoglobin was 12.0. She is doing well clinically. Pain well controlled. PAST MEDICAL HISTORY: Essentially none. PAST SURGICAL HISTORY: She is status post , had prior C-sections x 3. ALLERGIES: ALLERGIC TO SULFA, PENICILLIN, AND MACROBID. HOME MEDICATIONS: Only includes vitamins. SOCIAL HISTORY: Lives at home. No alcohol, tobacco or illicit drug use history. FAMILY HISTORY: Negative for early coronary artery disease or diabetes. REVIEW OF SYSTEMS: CARDIAC: Denies chest pain, shortness of breath or dyspnea on exertion. PULMONARY: No cough, sputum production or pleuritic chest pain. GASTROINTESTINAL: No nausea, vomiting, diarrhea, constipation at time of exam. All else negative in 10 point review of system except as in HPI. PHYSICAL EXAMINATION: VITAL SIGNS: After surgery, height 149.8 cm, weight 77.6 kilograms, temperature 99.0, pulse 72, respiratory rate 24, blood pressure 138/65 and O2 saturation 98% on 2 liters nasal cannula. GENERAL: She is alert, in no acute distress at time of exam. HEENT: Pupils equal, round, reactive to light. Sclerae are anicteric. Oropharynx is clear. Mucous membranes are moist. NECK: Supple, no lymphadenopathy. CARDIOVASCULAR: At time of exam is regular rate and rhythm. LUNGS: Clear bilaterally. No wheezing. ABDOMEN: Soft. Bowel sounds are present. EXTREMITIES: Shows no cyanosis, clubbing or significant edema. NEUROLOGIC: Grossly nonfocal. LABORATORY DATA: CBC drawn, WBC 16.9, hemoglobin 12.9 and platelets 110. Differential: 89% neutrophils, 7% lymphocytes, 3% monocytes. ASSESSMENT AND PLAN: This patient is a 26-year-old woman status post with reported high blood loss, although she is not anemic with no significant past medical history with some thrombocytopenia. 1. We will follow clinically. Monitor for blood loss, although she is not anemic at this time. We will transfuse as indicated. 2. She has thrombocytopenia with no obvious medications indicating the cause. She was thrombocytopenic upon presentation with a history of thrombocytopenia dating back to May. We will follow clinically. 3. Appropriate p.r.n. pain and nausea medication. Thank you very much for this consult. We will follow with you. Time spent on 09/05/2017 is 45 minutes. Prince Gardiner MD DR: LUBNA/pamela JOB# [id number]
[2017-09-06] MEDS ORDERED: PHENERGAN ONE (21:43)
[2017-09-06] MEDS ORDERED: ESGIC PO PRN (22:00)
[2017-09-06] MEDS ORDERED: VALIUM PO PRN (22:00)
[2017-09-06] MEDS ORDERED: AMBIEN PO PRN (22:00)
[2017-09-06] MEDS: ESGIC PO PRN (22:13)
[2017-09-06] MEDS: PHENERGAN IV PRN (23:00)
[2017-09-07] MEDS ORDERED: LACTATED RINGERS 1,000 ML ONE (02:23)
[2017-09-07] MEDS: TYLENOL PO PRN ×2 (03:57→04:02)
[2017-09-07] MEDS: ESGIC PO PRN (03:57)
[2017-09-07 06:13] LABS: BASOPHIL % 0.4 % (0.0-0.2); EOSINOPHIL % 0.5 % (0.0-5.0); LYMPHOCYTES # 1.8 10^3/uL (1.0-4.8); LYMPHOCYTES % 23.1 % (24.0-44.0); MEAN CELL HGB 29.6 pg (26-34); MEAN CELL HGB CONCENTRATION 32.9 g/dL (33-37); MEAN CORP VOLUME 89.8 fL (78-100); MEAN PLATELET VOLUME 12.7 fL (7.8-11.0); MONOCYTES # 0.6 10^3/uL (0.3-0.8); MONOCYTES % 7.2 % (5.0-12.0); NEUTROPHIL # 5.4 10^3/uL (1.8-7.7); NEUTROPHILS % 68.4 % (41.0-85.0); RED CELL DISTRIBUTION WIDTH 15.6 % (11.5-14.5); WHITE BLOOD CELL 7.9 10^3/uL (4.5-11.0)
[2017-09-07 06:55] LABS: CALCIUM 8.4 mg/dL (8.4-10.5); CARBON DIOXIDE 26.3 mmol/L (20.0-32)
[2017-09-07] MEDS ORDERED: MOTRIN ONE ×3 (07:12→23:54)
[2017-09-07] MEDS ORDERED: NORCO 7.5MG PO ONE ×4 (07:13→20:37)
[2017-09-07] MEDS: MOTRIN PO PRN ×2 (07:22→15:14)
[2017-09-07] MEDS: NORCO 7.5MG PO PRN ×4 (07:22→20:45)
[2017-09-07] MEDS: PHENERGAN IV PRN (08:48)
[2017-09-07] MEDS ORDERED: PROTONIX IV IV ONE (08:58)
[2017-09-07] MEDS ORDERED: PRENATAL VITAMIN TABLET PO ONE (08:58)
[2017-09-07] MEDS: PROTONIX IV IV SCH (09:04)
[2017-09-07] MEDS: PRENATAL VITAMIN TABLET PO SCH (09:04)
--- NOTE | 2017-09-07 09:36 | NUR ---
Blood Patch Pt assessed and determined to have a spinal headache. Consent Obtained and blood patch performed with pt in sitting position. Time out performed with RN and procedure started. LADAN at 7cm. Blood obtained sterile from new IV start by RN. Placed 13cc of blood in epidural space. Pt headache relieved immediately. Arrived in pt room @ 0550 to discuss procedure and procedure was started at Addendum: 09/07/17 at 1037 by Barbara Velasquez CRNA [employer] procedure started at 0615. completed at 0705. Rechecked patient at 1030. pt sitting up hungry and headache diminished to -05/16 Barbara Velasquez
[2017-09-07] MEDS ORDERED: NS 1000ML 1,000 ML ONE (20:40)
[2017-09-07] MEDS: NS 1000ML 1,000 ML IV PRN (20:45)
--- NOTE | 2017-09-07 20:48 | PRM.PN ---
Subjective/Objective S/P: C/S (POD #2 s/p Repeat C/S with bilateral salpingectomy and subsequent hemorrhage with placement of Bakri Balloon. Pt is now s/p placement of blood patch for spinal LUX) General: Other (Pt continues to have a severe LUX despite the placement of a blood patch this morning. Bri Rico CRNA is going to evaluate this patient tomorrow morning, to see if she needs a second blood patch. As long as the patient is laying on her sides she is OK and the LUX pain is not so bad.) Chest: Clear Heart: RRR Abdomen: Uterus Firm/Non-Tender incision: Other (Prevena wound vac still in place) Urine Output: Adequate Extremities: Neg Edema/Neg Homans Vital Signs Vital Signs 09/05/17 09/05/17 09/05/17 12:32 12:47 16:33 Temp 99.0 Pulse 61 Resp 22 B/P (MAP) 128/74 Pulse Ox 95 O2 Delivery Room Air Non-Rebreather O2 Flow Rate 5 Vital Signs 09/05/17 09/05/17 09/05/17 09/05/17 12:17 12:17 12:32 12:47 Temp 97.7 97.9 97.7 Pulse 75 68 Resp 20 18 18 B/P (MAP) 128/80 (96) 115/73 (87) 121/72 (88) Pulse Ox 99 97 95 O2 Delivery Non-Rebreather Non-Rebreather Room Air Non-Rebreather O2 Flow Rate 15 15 5 09/05/17 16:33 Temp 99.0 Pulse 61 Resp 22 B/P (MAP) 128/74 I & O 09/04/17 09/04/17 09/05/17 08:00 16:00 00:00 Intake Detail Pulse is in the 60s Laboratory Tests Test 09/05/17 15:04 09/05/17 15:51 09/06/17 00:35 09/06/17 02:32 White Blood Count 16.9 10^3/uL 14.9 10^3/uL 12.3 10^3/uL Red Blood Count 4.34 10^6/uL 4.86 10^6/uL 4.04 10^6/uL Hemoglobin 12.9 g/dL 14.1 g/dL 12.0 g/dL Hematocrit 38.4 % 42.7 % 34.6 % Mean Corpuscular Volume 88.5 fL 87.9 fL 85.6 fL Mean Corpuscular Hemoglobin 29.7 pg 29.0 pg 29.7 pg Mean Corpuscular Hemoglobin Concent 33.6 g/dL 33.0 g/dL 34.7 g/dL Red Cell Distribution Width 15.3 % 15.2 % 15.1 % Platelet Count 110 10^3/uL 91 10^3/uL 88 10^3/uL Mean Platelet Volume 12.6 fL 13.2 fL 12.7 fL Neutrophils (%) (Auto) 88.9 % 90.5 % 79.8 % Lymphocytes (%) (Auto) 7.7 % 5.2 % 10.8 % Monocytes (%) (Auto) 3.0 % 3.9 % 9.3 % Neutrophils # (Auto) 15.0 10^3/uL 13.5 10^3/uL 9.8 10^3/uL Lymphocytes # (Auto) 1.3 10^3/uL 0.8 10^3/uL 1.3 10^3/uL Monocytes # (Auto) 0.5 10^3/uL 0.6 10^3/uL 1.2 10^3/uL Absolute Immature Granulocyte (auto 0.03 10^3 u/L 0.03 10^3 u/L Eosinophils % 0.1 % 0.1 % 0.0 % Basophils % 0.1 % 0.1 % 0.1 % Basophils # 0.0 10^3/uL 0.0 10^3/uL 0.0 10^3/uL Eosinophil Count 0.0 10^3/uL 0.0 10^3/uL 0.0 10^3/uL Percent Immature Gran (Cell Imm) 0.20 % 0.20 % Activated Partial Thromboplast Time 24.8 SEC Prothrombin Time 9.5 SEC Prothrombin Time INR (Non-Therap) 1.0 Test 09/06/17 05:21 09/06/17 08:04 09/06/17 10:45 09/06/17 11:00 White Blood Count 10.1 10^3/uL 8.5 10^3/uL Red Blood Count 3.88 10^6/uL 3.84 10^6/uL Hemoglobin 11.4 g/dL 11.2 g/dL Hematocrit 34.1 % 33.7 % Mean Corpuscular Volume 87.9 fL 87.8 fL Mean Corpuscular Hemoglobin 29.4 pg 29.2 pg Mean Corpuscular Hemoglobin Concent 33.4 g/dL 33.2 g/dL Red Cell Distribution Width 15.4 % 15.4 % Platelet Count 79 10^3/uL 81 10^3/uL Mean Platelet Volume 12.8 fL 13.1 fL Neutrophils (%) (Auto) 73.2 % 71.4 % Lymphocytes (%) (Auto) 15.4 % 19.8 % Monocytes (%) (Auto) 11.1 % 8.4 % Neutrophils # (Auto) 7.4 10^3/uL 6.1 10^3/uL Lymphocytes # (Auto) 1.6 10^3/uL 1.7 10^3/uL Monocytes # (Auto) 1.1 10^3/uL 0.7 10^3/uL Absolute Immature Granulocyte (auto 0.02 10^3 u/L 0.01 10^3 u/L Eosinophils % 0.0 % 0.1 % Basophils % 0.1 % 0.2 % Basophils # 0.0 10^3/uL 0.0 10^3/uL Eosinophil Count 0.0 10^3/uL 0.0 10^3/uL Sodium Level 141 mmol/L Potassium Level 3.5 mmol/L Chloride Level 106.0 mmol/L Carbon Dioxide Level 26.1 mmol/L Anion Gap 12.4 Blood Urea Nitrogen 6 mg/dL Creatinine 0.63 mg/dL Estimated GFR () 138.2 BUN/Creatinine Ratio 9.0 Glucose Level 95 mg/dL Calcium Level 8.3 mg/dL Total Bilirubin 0.9 mg/dL Aspartate Amino Transf (AST/SGOT) 17 U/L Alanine Aminotransferase (ALT/SGPT) 13 U/L Alkaline Phosphatase 92 U/L Total Protein 5.2 g/dL Albumin 2.1 g/dL Globulin 3.1 Percent Immature Gran (Cell Imm) 0.20 % 0.10 % Magnesium Level 1.4 mg/dL Prothrombin Time 9.5 SEC Prothrombin Time INR (Non-Therap) 1.0 Activated Partial Thromboplast Time 25.4 SEC Assessment/Plan Assessment/Plan Possible second blood patch in am. Routine postop/ care otherwise. H /H stable, no need for more transfusions. Anticipate discharge home on Thu. Problems: (1) Spinal headache complicating labor and delivery, delivered, ICD Code: O74.5 - Spinal and epidural anesthesia-induced headache during labor and delivery SNOMED: 960411422 (2) atony of uterus with hemorrhage ICD Code: O72.1 - Other immediate hemorrhage SNOMED: 3152193, 42760156 (3) Status post repeat low transverse section ICD Code: Z98.891 - History of uterine scar from previous surgery SNOMED: 20673502, 275106691, 204657491, 291370601 (4) 39 weeks gestation of ICD Code: Z3A.39 - 39 weeks gestation of SNOMED: 36880306 (5) History of 3 sections Status: Acute ICD Code: Z87.59 - Personal history of other complications of , childbirth and the puerperium SNOMED: 946269807 BRI JAMES MD Sep 07, 2017 20:48
[2017-09-08] MEDS: MOTRIN PO PRN ×4 (00:03→20:32)
[2017-09-08] MEDS ORDERED: NORCO 7.5MG PO ONE ×2 (01:09→07:05)
[2017-09-08] MEDS: NORCO 7.5MG PO PRN ×2 (01:22→07:14)
[2017-09-08] MEDS ORDERED: NS 1000ML 1,000 ML ONE (04:35)
[2017-09-08] MEDS: NS 1000ML 1,000 ML IV PRN (04:41)
[2017-09-08 05:05] LABS: BASOPHIL % 0.5 % (0.0-0.2); EOSINOPHIL # 0.1 10^3/uL (0.0-0.2); EOSINOPHIL % 1.4 % (0.0-5.0); HEMOGLOBIN 11.1 g/dL (12.0-15.0); LYMPHOCYTES # 2.6 10^3/uL (1.0-4.8); LYMPHOCYTES % 35.4 % (24.0-44.0); MEAN CELL HGB 29.5 pg (26-34); MEAN CELL HGB CONCENTRATION 32.8 g/dL (33-37); MEAN CORP VOLUME 89.9 fL (78-100); MEAN PLATELET VOLUME 12.3 fL (7.8-11.0); MONOCYTES # 0.5 10^3/uL (0.3-0.8); MONOCYTES % 6.4 % (5.0-12.0); NEUTROPHIL # 4.2 10^3/uL (1.8-7.7); RED CELL DISTRIBUTION WIDTH 15.4 % (11.5-14.5); WHITE BLOOD CELL 7.4 10^3/uL (4.5-11.0)
[2017-09-08 05:28] LABS: CALCIUM 7.5 mg/dL (8.4-10.5); CARBON DIOXIDE 24.8 mmol/L (20.0-32)
[2017-09-08] MEDS ORDERED: ZOFRAN ONE (07:54)
[2017-09-08] MEDS: ZOFRAN IV PRN (07:56)
[2017-09-08] MEDS ORDERED: PROTONIX IV IV ONE (10:15)
[2017-09-08] MEDS ORDERED: PRENATAL VITAMIN TABLET PO ONE (10:15)
[2017-09-08] MEDS: PROTONIX IV IV SCH (10:18)
[2017-09-08] MEDS: PRENATAL VITAMIN TABLET PO SCH (10:18)
--- NOTE | 2017-09-08 10:32 | NUR ---
Consulted for spinal headache. Pt had an epidural blood patch yesterday without relief. Risk and benefits discussed with pt and chooses to proceed with epidural blood patch. Pt sitting position. site cleaned with chloroprep, local injection via lidocaine 1%, Epidural space at 7 cm via 17 g touhy x 1. Blood received from Rn via sterile method. 16 ml of Blood injected into epidural space slowly. Sterile procedure maintained at all times. Pt tolerated procedure well. Immediately headache relief according to pt. Pt positioned flat. Post op instructions verbalized. No complications noted. Will continue to monitor.
[2017-09-08] MEDS ORDERED: MOTRIN ONE ×3 (12:20→20:29)
[2017-09-08] MEDS ORDERED: ZOFRAN ODT ONE (12:40)
[2017-09-08] MEDS ORDERED: TYLENOL PO ONE (17:06)
[2017-09-08] MEDS: TYLENOL PO PRN (17:08)
[2017-09-08] MEDS ORDERED: HYDR-925 PO (18:37)
--- NOTE | 2017-09-08 18:51 | PRM.DC ---
OB Discharge Summary Discharge Summary Discharge Diagnosis: S/P (S/P Repeat C/S with bilateral salpingectomy ; S/P placement of Bakri Balloon and transfusion of PRBCs/FFP) Complications: Transfusion (Pt endured a PPH at 2pm on ThuSeptember 05, and I placed a Bakri Balloon in the posterior fornix of the vagina with a vaginal packing. She was given Methergine X 2, Hemabate X 1, and Cytotec 1200mcg's [place]. She was moved to the ICU overnight but did not require pressors and was hemodynamically stable even upon entry to the ICU.) Abnormal Lab Results Laboratory Tests Test 09/07/17 05:05 09/08/17 04:43 White Blood Count 7.9 10^3/uL 7.4 10^3/uL Red Blood Count 3.72 10^6/uL 3.76 10^6/uL Hemoglobin 11.0 g/dL 11.1 g/dL Hematocrit 33.4 % 33.8 % Mean Corpuscular Volume 89.8 fL 89.9 fL Mean Corpuscular Hemoglobin 29.6 pg 29.5 pg Mean Corpuscular Hemoglobin Concent 32.9 g/dL 32.8 g/dL Red Cell Distribution Width 15.6 % 15.4 % Platelet Count 97 10^3/uL 88 10^3/uL Mean Platelet Volume 12.7 fL 12.3 fL Neutrophils (%) (Auto) 68.4 % 56.0 % Lymphocytes (%) (Auto) 23.1 % 35.4 % Monocytes (%) (Auto) 7.2 % 6.4 % Neutrophils # (Auto) 5.4 10^3/uL 4.2 10^3/uL Lymphocytes # (Auto) 1.8 10^3/uL 2.6 10^3/uL Monocytes # (Auto) 0.6 10^3/uL 0.5 10^3/uL Absolute Immature Granulocyte (auto 0.03 10^3 u/L 0.02 10^3 u/L Eosinophils % 0.5 % 1.4 % Basophils % 0.4 % 0.5 % Basophils # 0.0 10^3/uL 0.0 10^3/uL Eosinophil Count 0.0 10^3/uL 0.1 10^3/uL Prothrombin Time 9.3 SEC Prothrombin Time INR (Non-Therap) 0.9 Activated Partial Thromboplast Time 24.3 SEC Sodium Level 143 mmol/L 143 mmol/L Potassium Level 3.8 mmol/L 3.6 mmol/L Chloride Level 108.0 mmol/L 109.0 mmol/L Carbon Dioxide Level 26.3 mmol/L 24.8 mmol/L Anion Gap 12.5 12.8 Blood Urea Nitrogen 6 mg/dL 8 mg/dL Creatinine 0.52 mg/dL 0.65 mg/dL Estimated GFR () 172.5 133.3 BUN/Creatinine Ratio 11.0 12.0 Glucose Level 77 mg/dL 94 mg/dL Calcium Level 8.4 mg/dL 7.5 mg/dL Total Bilirubin 0.6 mg/dL 0.3 mg/dL Aspartate Amino Transf (AST/SGOT) 20 U/L 13 U/L Alanine Aminotransferase (ALT/SGPT) 13 U/L 13 U/L Alkaline Phosphatase 84 U/L 80 U/L Total Protein 5.3 g/dL 5.0 g/dL Albumin 2.0 g/dL 1.9 g/dL Globulin 3.3 3.1 Percent Immature Gran (Cell Imm) 0.40 % 0.30 % Medications: Other (Rx [place] 7.5/325 #30 no refills--written on triplicate prescription pad and given to patient during her preop appointment.) Discharge Disposition: Stable Discharge Instructions: Pelvic Rest x 6 Weeks, Clinic F/U 1-2 Weeks, Regular Diet, Regular Activity, Meds as Prescribed, Call MD for Problems Additional Comments Pt had failed attempts at spinal anesthesia on ThuSeptember 05, and so she had general anesthesia for her Repeat C/S with bilateral salpingectomy. She had a spinal headache. She had two blood patches placed, and she did get relief several hours after the second one was placed in the morning of September 08 2017. Moving air good on chest exam on September 08 2017. Pt ambulating well too by . BRI JAMES MD Sep 08, 2017 18:51
--- NOTE | 2017-09-08 20:28 | NUR ---
DROPPED MOTRIN ON FLOOR I WAS OPENING IT FOR PT IN THE ROOM. MOTRIN WASTED AND NEW MOTRIN ADMINISTERED @ 2031
[2017-09-09] MEDS ORDERED: MOTRIN ONE (05:45)
[2017-09-09] MEDS ORDERED: NORCO 7.5MG PO ONE (05:45)
[2017-09-09] MEDS: NORCO 7.5MG PO PRN (05:49)
[2017-09-09] MEDS: MOTRIN PO PRN (05:49)
[2017-09-09] MEDS ORDERED: ZOFRAN ONE (08:53)
[2017-09-09] MEDS ORDERED: PROTONIX IV IV ONE (08:53)
[2017-09-09] MEDS ORDERED: ESGIC PO ONE (08:54)
[2017-09-09] MEDS ORDERED: PRENATAL VITAMIN TABLET PO ONE (08:54)
[2017-09-09] MEDS: PROTONIX IV IV SCH (09:04)
[2017-09-09] MEDS: ESGIC PO PRN (09:08)
[2017-09-09] MEDS: PRENATAL VITAMIN TABLET PO SCH (09:08)
[2017-09-09] MEDS: ZOFRAN IV PRN (09:08)
[2017-09-09] MEDS ORDERED: PHENERGAN ONE (12:16)
[2017-09-09] MEDS ORDERED: DEMEROL ONE (12:17)
[2017-09-09] MEDS ORDERED: LIDOCAINE HCL MM ONE (12:21)
[2017-09-09] MEDS ORDERED: SUBLIMAZE ONE (12:46)
[2017-09-09] MEDS ORDERED: NS 1000ML 1,000 ML ONE (12:46)
[2017-09-09] MEDS ORDERED: SUBLIMAZE IV STA (12:52)
[2017-09-09] MEDS ORDERED: PHENERGAN IM STA (12:54)
[2017-09-09] MEDS ORDERED: DEMEROL IM STA (12:54)
[2017-09-09] MEDS ORDERED: NS 1000ML 1,000 ML IV SCH (13:00)
--- NOTE | 2017-09-09 13:45 | NUR ---
was called and asked to do sphenopalentine block prior to discharge for continued possible post dural headache. Upon arrival to the pt room she was crying out in pain, holding her head. she was able to tell me it just started when she rolled over. It was in the top of her head even when laying down but is now in the back and neck. I ordered Im pain medication and talked with the and Dr. Deal. Say arrived at the unit shortly and it was decided to transfer her to out for neuro consult. In the meantime an IV was started by me and IVfluids ordered as well as Fentanyl for pain. after a total of Fentanyl 100 mcg IV the patient was able to get some relief--see nurses notes. No block was performed at this time, will defer to [facility] for further treatment at this time.
[2017-09-09 19:29] VITALS: BP 150/70
--- NOTE | 2017-09-10 02:21 | PNH ---
DATE: 09/09/2017 I am going to be shipping the patient to [facility] in [place], [place], for further workup and management of a severe spinal headache, which has been recalcitrant to blood patch placement x 2 by MOTOR VEHICLE ESCORT DRIVER staff. Today, the patient is postoperative day #4, status post repeat section and bilateral salpingectomy under general anesthesia. The procedure was performed on Thursday09/05/2017 owing to pediatric coverage issues. The patient had been stuck multiple times by the MOTOR VEHICLE ESCORT DRIVER php consultant that day, hoping to successfully place a spinal. However, the spinal could not be placed, and so the procedure was performed under general anesthesia. The patient tolerated the procedure very well, however, approximately 3 hours after the procedure, the patient suffered a severe hemorrhage, where she likely lost approximately 2.5-3 liters of blood. The patient was transfused with 4 units of PRBCs, the first three being O negative blood, and the fourth one being typed and matched. She also received 2 units of FFP. The patient was transferred to the ICU on Thursday09/05/2017, however, her pulse was in the 60s-70s throughout, and pressors were not necessary. The patient had a Bakri balloon with vaginal packing placed in the posterior fornix of her vagina, by me during the day on Thursday09/05/2017, prior to the patient's transfer to the ICU. The patient's Bakri balloon and vaginal packing were removed by me on Thursday09/06/2017 hours after the patient was transferred back to her room. The patient had 2 blood patches placed, one on 09/07/2017, and another on Thursday09/08/2017. The 1 placed on Thursday09/07/2017, was by the originating MOTOR VEHICLE ESCORT DRIVER who had given her anesthesia on Thursday09/05/2017, Barbara Velasquez A second blood patch was placed on 09/08/2017 (yesterday), by Pancho Rico CRNA. There was not the usual 20 mL of blood that was administered into the epidural space during Pancho Rico's procedure. The patient did get some relief on Thursday09/08/2017 for a couple of hours; however, she had a return of her severe spinal headache. As the afternoon progressed on Thursday09/08/2017 slowly, the patient began to feel better, and by the evening of 09/08/2017, the patient was fully ambulatory on the hospital floor, where she was pushing her baby, and her headache had abated very much so. The patient slept well overnight, and there were plans to dismiss her home today, Thursday09/09/2017. The patient was doing very well headache jimenez this morning, however, when a third MOTOR VEHICLE ESCORT DRIVER, Ms. Barbara Bolden, came to visit the patient today in her room, the patient turned her head to the side quickly, and apparently this precipitated the onset of a very severe spinal headache. The patient was screaming in pain. At this point, I felt that the patient needs to go to a tertiary care facility for further workup and management. The patient's family was extremely understanding when myself and Barbara Bolden were explaining the need for transfer out of our facility. Barbara Bolden did give the patient IV Demerol and IV fentanyl today, while waiting for me to coordinate the transfer. Transferring the patient out of our facility was not straightforward. I initially made contact with the [facility] Transfer Center at 12:40 p.m. today. I spoke with Allison. He connected me with Dr. Garcia, who was an RADIOLOGY SERVICES MANAGER faculty at [facility] in [place]. I spoke with Dr. Garcia around 12:[address] Garcia felt that the two neurologists who performed consult at [facility] were not always readily available when a patient such as this would need a consultation emergently. One of the two neurologists that he and his fellow faculty have used in the past was Dr. Barros (I am unsure of the exact spelling). Dr. Garcia was afraid that Dr. Barros would come see the patient tomorrow and Dr. Garcia agreed that this patient should be evaluated by Neurology as soon as possible. Dr. Garcia suggested that I get a hold of [facility] to see if they had other options for Neurology care. Allison from the transfer center at [place] then transferred me to Lisa of the [facility] transfer center in [place]. After a few minutes on the phone with Lisa from the transfer center at [facility], it was obvious that I was going to have to transfer the patient to [facility]. Apparently, [facility] does not have neurologists for consultation. Lisa of the [facility] transfer center gave me the phone number for the transfer center at [facility] in [place], which was . I got a hold of Rica at 12:55 p.m. Rica called me back, and I spoke with Dr. Sow, who is an RADIOLOGY SERVICES MANAGER faculty at [facility] in [place], working out of [facility]. This phone call began at 1:[address] Sow accepted the patient at 1:20 p.m., and said that the patient could be transferred to Labor and Delivery at [facility]. Dr. Sow said that he conferred with the staff anesthesiologist on Labor and Delivery today at [facility], and both men agreed that this patient could be evaluated in [place] today. I thank Dr. Sow for his participation in the care of this patient. I began the paperwork for a transfer of the patient to [place] today. I spoke with the patient's family about the need for transfer to [place] and how [place] does not have the availability of a neurologist to evaluate the patient immediately. I sincerely apologized to the family that the patient was having such a difficult time with the spinal headaches. The patient's expressed gratitude to me for taking care of his . All of their questions were answered. I asked the patient's to keep us abreast of what is going on with the patient at [facility] in [place]. If the patient is dismissed from the hospital, she will follow up with me tentatively on Thursday09/14/2017 for removal of her Prevena wound VAC/dressing. Pancho Deal MD DR: LELA/pamela JOB# [id number] PÉREZ
== END 2017-09-09 14:30 | disposition short-term general hospital (02) | DRG 765 ==
LOC: EEVIPCON 13:00 → LND 09-05 00:02 → ICU 09-05 15:25 → LND 09-06 17:30 → EDPENDDISTM 09-09 14:30
PROVIDERS: ADMIT Hospitalist; ATTEND Hospitalist
PROC: 0UB70ZZ Excision of Bilateral Fallopian Tubes, Open Approach (ICD-10-PCS; 2017-09-05)
PROC: 0W3R7ZZ Control Bleeding in Genitourinary Tract, Via Natural or Artificial Opening (ICD-10-PCS; 2017-09-05)
PROC: 30233L1 Transfusion of Nonautologous Fresh Plasma into Peripheral Vein, Percutaneous Approach (ICD-10-PCS; 2017-09-05)
PROC: 30233N1 Transfusion of Nonautologous Red Blood Cells into Peripheral Vein, Percutaneous Approach (ICD-10-PCS; 2017-09-05)
PROC: 30233K1 Transfusion of Nonautologous Frozen Plasma into Peripheral Vein, Percutaneous Approach (ICD-10-PCS; 2017-09-05)
PROC: 10D00Z1 Extraction of Products of Conception, Low, Open Approach (ICD-10-PCS; principal; 2017-09-05 10:22)
DX: O34.211 Maternal care for low transverse scar from previous cesarean delivery (principal); O72.1 Other immediate postpartum hemorrhage; O99.12 Other diseases of the blood and blood-forming organs and certain disorders involving the immune mechanism complicating childbirth; O99.13 Other diseases of the blood and blood-forming organs and certain disorders involving the immune mechanism complicating the puerperium; D69.6 Thrombocytopenia, unspecified; O69.81X0 Labor and delivery complicated by cord around neck, without compression, not applicable or unspecified; O89.4 Spinal and epidural anesthesia-induced headache during the puerperium; E83.42 Hypomagnesemia; O32.1XX0 Maternal care for breech presentation, not applicable or unspecified; O99.62 Diseases of the digestive system complicating childbirth; K21.9 Gastro-esophageal reflux disease without esophagitis; Z30.2 Encounter for sterilization; Z88.0 Allergy status to penicillin; Z3A.39 39 weeks gestation of pregnancy; Z37.0 Single live birth; Z88.2 Allergy status to sulfonamides; Z88.8 Allergy status to other drugs, medicaments and biological substances
CPT/HCPCS: 36415; 36430; 80053; 81000; 83735; 85025; 85610; 85730; 86318; 86885; 86900; 86901; 86921; 87086; 88302; 93005; A4338; C9113; J0696; J1100; J1885; J2175; J2210; J2250; J2405; J2550; J2590; J3010; J3475; J3480; J3490; J7030; J7050; J7120; P9016; Q0162; J2274; J2310; P9017

== ENCOUNTER → 2018-07-19 | Outpatient (CLI) | payer BC ==
[~2018-07-19] MED LIST changes: +HYDR-3468 PO; +HYDR-3469 PO; -HYDR-926 PO; +LACT1CAP34 PO
[2018-07-19 10:48] LABS: BASOPHIL # 0.1 10^3/uL (0.0-0.1); BASOPHIL % 0.8 % (0.0-0.2); EOSINOPHIL # 0.1 10^3/uL (0.0-0.2); LYMPHOCYTES # 2.5 10^3/uL (1.0-4.8); MEAN CELL HGB 29.7 pg (26-34); MEAN CELL HGB CONCENTRATION 34.4 g/dL (33-37); MEAN CORP VOLUME 86.3 fL (78-100); MEAN PLATELET VOLUME 11.3 fL (7.8-11.0); MONOCYTES # 0.5 10^3/uL (0.3-0.8); MONOCYTES % 6.1 % (5.0-12.0); NEUTROPHIL # 4.6 10^3/uL (1.8-7.7); RED CELL DISTRIBUTION WIDTH 13.5 % (11.5-14.5); WHITE BLOOD CELL 7.7 10^3/uL (4.5-11.0)
== END | disposition home or self-care (01) ==
LOC: LAB 10:22
PROVIDERS: ATTEND Obstetrics & Gynecology
DX: N92.1 Excessive and frequent menstruation with irregular cycle (principal)
CPT/HCPCS: 36415; 85025; 85240; 85610; 85730

== ENCOUNTER → 2019-06-08 | Outpatient (CLI) | payer BC ==
--- NOTE | 2019-06-08 12:13 | DIREP ---
PROCEDURE:US KIDNEYS-BILAT COMPARISON:[facility], [place], US KIDNEYS-BILAT, 03/31/2015, 03:47 PM. [facility], [place], RENAL SONOGRAM, 10/06/2011, 08:09 AM. INDICATIONS:RECURRENT UTI TECHNIQUE:Ultrasound examination was performed of the kidneys and bladder. FINDINGS: RIGHT KIDNEY:11.5 x 5.6 x 5.6 cm. Cortex: 1.6 cm LEFT KIDNEY: 11.6 x 5.6 x 6.2 cm. Cortex: 1.6 cm BLADDER (pre-void):11.8 x 7.0 x 8.9 cm. Volume 514.1 ml BLADDER (post-void): 3.0 x 2.0 x 4.0 cm. Volume 12.3 ml MICTURATED VOLUME: 501.8 ml RIGHT KIDNEY: There is no hydronephrosis or suspicious cortical lesion. Cortical calcification(s) noted. LEFT KIDNEY: There is no hydronephrosis. A 0.6 cm nonobstructing stone is visualized. BLADDER:Bilateral ureteral jets visualized. No visible wall thickening, mass, or calculus. Echogenic, mobile debris is seen. OTHER:Incidental note of contracted gallbladder packed with shadowing stones. Questionable pericholecystic fluid. CONCLUSION:1. Echogenic mobile debris is noted in the bladder with 12.3 mL residual urine in on post void imaging. Sonography of the kidneys and bladder is otherwise normal. 2. Incidental note is made of a contracted gallbladder packed with echogenic stones in the right upper quadrant. Dictated by: OMAR Physician on 06/08/2019 at 10:48 AM ac
== END | disposition home or self-care (01) ==
LOC: RAD 09:54
PROVIDERS: ATTEND Nurse Practitioner
DX: N39.0 Urinary tract infection, site not specified (principal)
CPT/HCPCS: 76770

== ENCOUNTER 2019-11-13 08:55 | Emergency (ER) | payer BC ==
[~2019-11-13] VITALS: Ht 149.9 cm; Wt 72.6 kg
[2019-11-13 09:07] VITALS: BP 124/87
--- NOTE | 2019-11-13 09:25 | PCM.EKG ---
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
--- NOTE | 2019-11-13 09:38 | ER.PDOC ---
General Chief Complaint: General Complaint Stated Complaint: LEFT ARM NUMBNESS, CP TRAVEL OUT OF US: No Time seen by MD: 09:31 Source: patient Exam Limitations: no limitations History of Present Illness Initial Comments patient c/o left arm numbness and a single brief sharp stabbing pain in chest Timing/Duration: momentarily (this morning) Severity: mild Associated Symptoms: chest pain (sharp, stabbing, brief with constant LUE numbness that started last night) Allergies: Coded Allergies: amoxicillin (Verified Allergy, Severe, PAIN ITCHING RASH, 09/02/17) nitrofurantoin (Unverified Allergy, Severe, DIFFICULTY BREATHING, 09/02/17) Sulfa (Sulfonamide Antibiotics) (Unverified Allergy, Unknown, Rash, 09/02/17) Home Meds Reported Medications Lactobacillus Acidophilus (Probiotic) 1 Each Capsule, 1 EACH PO DAILY24, CAPSULE 09/02/17 Vits W-Ca,Fe,Fa(<1MG) ( VITAMINS) 1 Each Tablet, 1 TAB PO DAILY, #90 TAB 3 Refills 03/29/15 Past Medical History Medical History: no pertinent history Surgical History: cholecystectomy, Social History Alcohol Use: none Drug Use: none Review of Systems Constitutional: no symptoms reported EENTM: no symptoms reported Respiratory: no symptoms reported Cardiovascular: see HPI, chest pain Gastrointestinal: no symptoms reported Genitourinary: no symptoms reported Musculoskeletal: no symptoms reported Skin: no symptoms reported Psychiatric/Neurological: numbness (LUE, constant, onset last night) Physical Exam General Appearance: No Apparent Distress, WD/WN Respiratory: chest non-tender, lungs clear, normal breath sounds, no respiratory distress, no accessory muscle use CVS: reg rate & rhythm Gastrointestinal: Normal Bowel Sounds, No Pulsatile Mass Extremities: Non-Tender, Normal Inspection, No Pedal Edema, No Calf Tenderness Neurologic/Psychiatric: Alert, Normal Mood/Affect, Oriented x 3 Skin: Normal Color, Warm/Dry Results/Orders Results/Orders Orders - PACO HILLIARD DO Ekg-Routine (11/13/19 09:13) Xr Chest 1v (11/13/19 09:13) Vital Signs Date Time Temp Pulse Resp B/P (MAP) Pulse Ox O2 Delivery O2 Flow Rate FiO2 11/13/19 09:07 99.0 89 16 11/13/19 09:07 99.0 89 16 124/87 (99) 98 Room Air 11/13/19 09:07 99.0 89 16 98 EKG/XRAY/CT/US EKG: NSR, no ST T wave changes XRAY: chest (clear) Departure Time of Disposition: 09:53 Disposition: 01 HOME, SELF-CARE Impression: Primary Impression: Non-cardiac chest pain Additional Impression: Neuropraxia of left upper extremity Condition: Stable Patient Instructions: Chest Pain (Nonspecific) Referrals: PCP,UNKNOWN (PCP) PRIMARY CARE PROVIDER Additional Instructions: Return to ER if you experience any difficulty breathing or swallowing or for any emergent concern. Take steroids as prescribed until all gone. Follow up with your doctor next week for reevaluation. Duration or Time Spent with Pa: 15 Problem Qualifiers Additional Impression: Neuropraxia of left upper extremity Encounter type: initial encounter Qualified Codes: S44.92XA - Injury of unspecified nerve at shoulder and upper arm level, left arm, initial encounter PACO HILLIARD DO Nov 13, 2019 09:38
--- NOTE | 2019-11-13 09:52 | DIREP ---
PROCEDURE:CHEST 1 VIEW COMPARISON:[facility], [place], XRAY CHEST SINGLE VW, 06/20/2016, 10:32 AM. INDICATIONS:chest pain FINDINGS: LUNGS/PLEURA:No significant pulmonary parenchymal abnormalities. No effusions. Artifacts overlying the field of few including artifacts related to undergarments and EKG leads. The lungs are clear. No ground-glass infiltrates or pneumonia is seen. No pneumonia, heart failure or effusions are seen. No pneumothorax, pneumomediastinum, aortic aneurysm or mediastinal widening is seen. VASCULATURE:Normal. Unremarkable pulmonary vasculature. CARDIAC:Normal. No cardiac silhouette abnormality or cardiomegaly. MEDIASTINUM:Normal. No visible mass or adenopathy. BONES:Normal. No fracture or visible bony lesion. OTHER:Negative. CONCLUSION:No acute disease. Dictated by: Ramu Chaves MD on 11/13/2019 at 09:50 AM
[2019-11-13 10:00] VITALS: BP 110/67
== END 2019-11-13 10:01 | disposition home or self-care (01) ==
LOC: ER 08:55
DX: R07.89 Other chest pain (principal); R20.0 Anesthesia of skin; Z88.0 Allergy status to penicillin; Z88.1 Allergy status to other antibiotic agents; Z88.2 Allergy status to sulfonamides; Z90.49 Acquired absence of other specified parts of digestive tract
CPT/HCPCS: 71045; 93005; 99283

== ENCOUNTER 2020-03-03 17:50 | Emergency (ER) | payer BC ==
[~2020-03-03] VITALS: Ht 162.6 cm; Wt 81.6 kg
[2020-03-03] MEDS ORDERED: ATIVAN ONE (18:05)
[2020-03-03] MEDS ORDERED: ATIVAN IV STA (18:07)
[2020-03-03 18:08] VITALS: BP 158/106
[2020-03-03 18:12] LABS: BASOPHIL # 0.1 10^3/uL (0.0-0.1); BASOPHIL % 0.8 % (0.0-0.2); EOSINOPHIL # 0.1 10^3/uL (0.0-0.2); EOSINOPHIL % 0.8 % (0.0-5.0); LYMPHOCYTES % 25.9 % (24.0-44.0); MEAN CORP HGB 30.1 pg (26-34); MONOCYTES # 0.5 10^3/uL (0.3-0.8); MONOCYTES % 4.9 % (5.0-12.0); NEUTROPHIL # 6.3 10^3/uL (1.8-7.7); NEUTROPHILS % 67.5 % (41.0-85.0); PLATELET COUNT 173 10^3/uL (150-400); RED CELL DISTRIBUTION WIDTH 12.3 % (11.5-14.5)
--- NOTE | 2020-03-03 18:16 | ER.PDOC ---
General Chief Complaint: Requesting Medical Care Stated Complaint: CHEST PAIN, LEFT SIDED NUMBNESS Time seen by MD: 18:13 Source: patient Exam Limitations: no limitations History of Present Illness Initial Comments Chest pain, SOB, numbness and tingling of extremities for 2 days. Severity/Quality: moderate, pressure Radiation: no radiation Activities at Onset: none Prior CP/Workup: No Prior Chest Pain Nitro Today/Relief: No Nitro Taken Today Aspirin Today: No Aspirin Today Associated Symptoms: shortness of breath, other (anxious) Prior symptoms/Treatment: Similar symptoms previous, Recenly Seen, Treated by Doctor Allergies: Coded Allergies: amoxicillin (Verified Allergy, Severe, PAIN ITCHING RASH, 03/03/20) nitrofurantoin (Verified Allergy, Severe, DIFFICULTY BREATHING, 03/03/20) Sulfa (Sulfonamide Antibiotics) (Verified Allergy, Unknown, Rash, 03/03/20) Home Meds Reported Medications Lactobacillus Acidophilus (Probiotic) 1 Each Capsule, 1 EACH PO DAILY24, CAPSULE 09/02/17 Vits W-Ca,Fe,Fa(<1MG) ( VITAMINS) 1 Each Tablet, 1 TAB PO DAILY, #90 TAB 3 Refills 03/29/15 Past Medical History Medical History: no pertinent history Surgical History: cholecystectomy, Social History Drug Use: none Constitutional: no symptoms reported EENTM: no symptoms reported Respiratory: see HPI Cardiovascular: see HPI Gastrointestinal: no symptoms reported Genitourinary: no symptoms reported All Other Systems: Reviewed and Negative Physical Exam General Appearance: No Apparent Distress, WD/WN, Anxious Neck: Non-Tender, Full Range of Motion, Supple, Normal Inspection Respiratory: chest non-tender, lungs clear, normal breath sounds, no respira tory distress, no accessory muscle use Cardiovascular: Normal Peripheral Pulses, Regular Rate, Rhythm, No Edema, No Gallop, No JVD, No Murmur Gastrointestinal: Normal Bowel Sounds, No Organomegaly, No Pulsatile Mass, Non Tender, Soft Extremities: Normal Range of Motion, Non-Tender, Normal Inspection, No Pedal Edema, No Calf Tenderness, Normal Capillary Refill Neurologic/Psychiatric: health management consultant II-XII NML as Tested, No Motor/Sensory Deficits, Alert, Normal Mood/Affect, Oriented x 3 Skin: Normal Color, Warm/Dry Lymphatic: No Adenopathy Results/Orders Results/Orders Orders - VISHAL SANDRA MD Lorazepam (Ativan) (03/03/20 18:05) Cbc With Auto Diff (03/03/20 18:07) Comprehensive Metabolic Panel (03/03/20 18:07) Creatine Kinase (03/03/20 18:07) Creatine Kinase Mb (03/03/20 18:07) Troponin I (03/03/20 18:07) D-Dimer (03/03/20 18:07) Xr Chest 1v (03/03/20 18:07) Ekg-Routine (03/03/20 18:07) Lorazepam (Ativan) (03/03/20 18:07) Vital Signs Date Time Temp Pulse Resp B/P (MAP) Pulse Ox O2 Delivery O2 Flow Rate FiO2 03/03/20 18:19 76 20 158/85 (109) 98 Room Air 03/03/20 18:08 98.2 107 20 98 03/03/20 18:08 98.2 107 20 Administered Medications Medications (Trade) Dose Ordered Sig/Trent Route PRN Reason Start Time Stop Time Status Last Admin Dose Admin Lorazepam (Ativan) 1 mg STAT STAT IV 03/03/20 18:07 03/03/20 18:10 DC 03/03/20 18:20 1 MG Laboratory Tests Test 03/03/20 17:58 White Blood Count 9.3 10^3/uL (4.5-11.0) Red Blood Count 4.71 10^6/uL (4.00-5.20) Hemoglobin 14.2 g/dL (12.0-15.0) Hematocrit 40.8 % (36.0-46.0) Mean Corpuscular Volume 86.6 fL (78-100) Mean Corpuscular Hemoglobin 30.1 pg (26-34) Mean Corpuscular Hemoglobin Concent 34.8 g/dL (33-36.5) Red Cell Distribution Width 12.3 % (11.5-14.5) Platelet Count 173 10^3/uL (150-400) Mean Platelet Volume 12.2 fL (7.8-11.0) H Neutrophils (%) (Auto) 67.5 % (41.0-85.0) Lymphocytes (%) (Auto) 25.9 % (24.0-44.0) Monocytes (%) (Auto) 4.9 % (5.0-12.0) L Neutrophils # (Auto) 6.3 10^3/uL (1.8-7.7) Lymphocytes # (Auto) 2.40 10^3/uL1 (1.0-4.8) Monocytes # (Auto) 0.5 10^3/uL (0.3-0.8) Absolute Immature Granulocyte (auto 0.01 10^3 u/L (0-2) Absolute Eosinophils (auto) 0.1 10^3/uL (0.0-0.2) Immature Granulocytes % 0.10 % (0.00-0.50) Eosinophils % 0.8 % (0.0-5.0) Basophils % 0.8 % (0.0-0.2) H Basophils # 0.1 10^3/uL (0.0-0.1) D-Dimer 0.62 mg/L (0.19-0.49) *H Sodium Level 139 mmol/L (132-145) Potassium Level 3.3 mmol/L (3.6-5.2) L Chloride Level 103.0 mmol/L (96-109) Carbon Dioxide Level 26.3 mmol/L (20.0-32) Anion Gap 13.0 Blood Urea Nitrogen 8 mg/dL (7-18) Creatinine 0.95 mg/dL (0.59-1.40) Estimated GFR () 84.2 (>/=60) Est GFR (CKD-EPI)(Non-Afr [place]) 69.5 (>/=60) BUN/Creatinine Ratio 8.0 Glucose Level 117 mg/dL (70-110) H Calcium Level 9.6 mg/dL (8.4-10.5) Total Bilirubin 0.5 mg/dL (0.2-1.0) Aspartate Amino Transferase (AST) 21 U/L (0-35) Alanine Aminotransferase (ALT) 39 U/L (12-78) Alkaline Phosphatase 51 U/L (50-136) Total Creatine Kinase 76 U/L (26-192) Creatine Kinase MB < 0.5 ng/mL (0.5-3.6) L Troponin I < 0.02 ng/mL (0.00-0.05) Total Protein 8.0 g/dL (6.4-8.2) Albumin 4.2 g/dL (3.4-5.0) Globulin 3.8 Albumin/Globulin Ratio 1.105 Progress Progress Patient feeling better and all her symptoms resolved with Ativan. She is ready to go home. EKG/XRAY/CT/US EKG: NSR, no ST T wave changes EKG Comments: rate 92, normal axis XRAY: chest (No active disease) ER DEPART Departure Time of Disposition: 18:42 Disposition: 01 HOME, SELF-CARE Impression: Primary Impression: Severe anxiety with panic Condition: Improved Referrals: PCP,UNKNOWN (PCP) PRIMARY CARE PROVIDER Additional Instructions: Hydroxyzine F/U with PCP in 2-3 days Return to ED if worsening symptoms or concerns Duration or Time Spent with Pa: 45 min VISHAL SANDRA MD Mar 03, 2020 18:16
[2020-03-03 18:19] VITALS: BP 158/85
--- NOTE | 2020-03-03 18:27 | DIREP ---
PROCEDURE:CHEST 1 VIEW COMPARISON:[facility], CR, XRAY CHEST SINGLE VW, 11/13/2019, 08:56 AM. [facility], CR, XRAY CHEST SINGLE VW, 06/20/2016, 10:32 AM. INDICATIONS:Chest pain FINDINGS: LUNGS/PLEURA:No significant pulmonary parenchymal abnormalities. No effusions. VASCULATURE:Normal. Unremarkable pulmonary vasculature. CARDIAC:Normal. No cardiac silhouette abnormality or cardiomegaly. MEDIASTINUM:Normal. No visible mass or adenopathy. BONES:Normal. No fracture or visible bony lesion. OTHER:Negative. CONCLUSION:No acute cardiopulmonary findings. Dictated by: Rodney Juarez M.D. on 03/03/2020 at 06:25 PM
--- NOTE | 2020-03-03 18:30 | NUR ---
CRITICAL D-DIMER 0.62. EDP NOTIFIED
[2020-03-03 18:36] LABS: ALANINE AMINOTRANSFERASE(ML) 39 U/L (12-78); ALKALINE PHOSPHATASE 51 U/L (50-136); ASPARTATE AMINO TRANSFERASE 21 U/L (0-35); CALCIUM 9.6 mg/dL (8.4-10.5); CARBON DIOXIDE 26.3 mmol/L (20.0-32); GLUCOSE 117 mg/dL (70-110)
[2020-03-03 18:49] VITALS: BP 142/88
--- NOTE | 2020-03-05 11:15 | PCM.EKG ---
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
== END 2020-03-03 18:51 | disposition home or self-care (01) ==
LOC: ER 17:50
DX: F41.0 Panic disorder [episodic paroxysmal anxiety] (principal); Z79.899 Other long term (current) drug therapy; Z88.0 Allergy status to penicillin; Z88.1 Allergy status to other antibiotic agents; Z88.2 Allergy status to sulfonamides; Z90.49 Acquired absence of other specified parts of digestive tract
CPT/HCPCS: 36415; 71045; 80053; 82550; 82553; 84484; 85025; 85379; 93005; 96374; 99285; J2060